=== PATIENT | male | born 1975 | race Two or more races ===

== ENCOUNTER 2021-12-29 08:52 | Inpatient (IN) | payer BC, OTHER ==
[~2021-12-29] VITALS: Ht 182.9 cm; Wt 136.0 kg
[2021-12-29 09:40] LABS: Hematocrit 36.8 % (41.0-53.0); Hemoglobin 12.9 g/dL (13.5-17.5); Mean Corpuscular Hemoglobin 31.8 pg (28.0-32.0); Mean Corpuscular Volume 90.7 fL (80.0-100.0); Red Blood Cells 4.06 10^6/uL (4.5-5.90); Red Cell Distribution Width 14.9 % (11.8-14.3); White Blood Cell 13.9 10^3/uL (4.4-10.8)
[2021-12-29 09:46] LABS: Basophils % (manual) 0 (0.0-2.0); Blast Cells 0; Myelocytes % 0; Promyelocytes % 0; Reactive Lymphocytes 0
[2021-12-29 09:56] LABS: Albumin 2.2 g/dL (3.4-5.0); Calcium 8.2 mg/dL (8.5-10.1)
[2021-12-29 10:01] LABS: BUN/Creatinine Ratio 17.5; Bilirubin, Total 1.4 mg/dL (0.2-1.0)
[2021-12-29 10:02] LABS: Potassium 2.9 mmol/L (3.5-5.1)
[2021-12-29] MEDS ORDERED: POTASSIUM EFFERVESENT TAB 25 MEQ PO ONE ×2 (11:00→12:45)
[2021-12-29] MEDS ORDERED: levoFLOXacin 500MG 100 ML IV ONE (11:45)
[2021-12-29] MEDS ORDERED: SODIUM CHLORIDE 0.9% 1,000 ML IV ONE ×4 (12:00→20:45)
[2021-12-29 12:03] LABS: Band Neutrophils % (manual) 26; Eosinophils % (manual) 1 (0-7); Lymphocytes % (manual) 9 (10.0-50.0); Metamyelocytes % 2; Monocytes % (manual) 12 (0-12)
[2021-12-29] MEDS: SODIUM CHLORIDE 0.9% 1,000 ML IV SCH ×2 (12:21→22:07)
[2021-12-29] MEDS ORDERED: KETOROLAC TROMETH 30 MG/ML 1ML VIAL IV PRN (12:45)
[2021-12-29] MEDS ORDERED: KETOROLAC TROMETH 30 MG/ML 1ML VIAL IV ONE (12:45)
[2021-12-29] MEDS ORDERED: PANTOPRAZOLE 40 MG/10 ML VIAL INJ IV ONE (12:45)
[2021-12-29 13:23] LABS: % Iron Saturation 7.7 % (20-55); Phosphorus 2.8 mg/dL (2.5-4.90)
[2021-12-29 13:27] LABS: Urine Bacteria MANY /hpf (None Seen); Urine Blood TRACE /uL (Negative); Urine Hyaline Cast FEW /lpf (0 - 2); Urine Mucus FEW (None Seen); Urine Specific Gravity 1.014 (1.001-1.035); Urine WBC 172 /hpf (0 - 3); Urine WBC Clumps PRESENT /hpf (None Seen)
[2021-12-29] MEDS ORDERED: IBUP200C3 PO (13:43)
[2021-12-29 13:56] VITALS: BP 110/63
[2021-12-29] MEDS ORDERED: MANNITOL FTV 25% 12.5 GM/50 ML 50 ML IV ONE (14:15)
[2021-12-29] MEDS ORDERED: TAMSULOSIN HYDROCHLORIDE 0.4 MG CAP PO ONE (14:15)
[2021-12-29 15:49] LABS: INR 1.16 (0.9-1.15)
[2021-12-29] MEDS: ACETAMINOPHEN 325 MG TAB PO PRN (18:44)
[2021-12-29] MEDS: MORPHINE SULFATE INJ 2 MG/ml SYRG IV PRN ×2 (18:44→20:50)
[2021-12-29] MEDS: ONDANSETRON HCL 4 MG/2 ML VIAL IV PRN (18:44)
[2021-12-29] MEDS: ALBUTEROL SULF 2.5 MG/0.5ML(0.5%) NEB SOLN NEB PRN (21:00)
[2021-12-29 22:06] LABS: Magnesium 1.8 mg/dL (1.6-2.6); Phosphorus 3.3 mg/dL (2.5-4.90); Potassium 3.1 mmol/L (3.5-5.1)
[2021-12-30 06:08] LABS: Basophils # (auto) 0 10 ^3/uL (0-0.2); Basophils % (auto) 0.2 % (0.0-2.0); Eosinophils # (auto) 0 10 ^3/uL (0-0.8); Eosinophils % (auto) 0.3 % (0.0-7.0); Hematocrit 33.2 % (41.0-53.0); Hemoglobin 11.5 g/dL (13.5-17.5); Lymphocytes # (auto) 0.4 10 ^3/uL (0.4-5.4); Lymphocytes % (auto) 4.2 % (10.0-50.0); Mean Corpuscular Hemoglobin 32.2 pg (28.0-32.0); Mean Corpuscular Hgb Conc. 34.7 g/dL (32.0-36.0); Mean Corpuscular Volume 92.9 fL (80.0-100.0); Neutrophils % (auto) 84.3 % (37.0-80.0); Red Blood Cells 3.57 10^6/uL (4.5-5.90); Red Cell Distribution Width 15.6 % (11.8-14.3); White Blood Cell 9.5 10^3/uL (4.4-10.8)
[2021-12-30 06:17] LABS: Calcium 7.6 mg/dL (8.5-10.1); Potassium 3.1 mmol/L (3.5-5.1)
[2021-12-30 06:20] LABS: Albumin 1.9 g/dL (3.4-5.0); BUN/Creatinine Ratio 20.5
[2021-12-30 06:22] LABS: Bilirubin, Total 0.9 mg/dL (0.2-1.0); Total Protein 5.6 g/dL (6.4-8.2)
[2021-12-30] MEDS ORDERED: POTASSIUM CHL 20 Meq TABLET PO ONE (06:30)
[2021-12-30 09:00] VITALS: BP 116/68
[2021-12-30] MEDS ORDERED: levoFLOXacin 500MG 100 ML IV SCH (10:00)
[2021-12-30] MEDS ORDERED: ENOXAPARIN SOD 40 MG/0.4 ML SYRINGE SC SCH (10:00)
[2021-12-30] MEDS: PANTOPRAZOLE 40 MG/10 ML VIAL INJ IV SCH (10:02)
[2021-12-30] MEDS: MORPHINE SULFATE INJ 2 MG/ml SYRG IV PRN ×2 (10:03→14:46)
[2021-12-30] MEDS: levoFLOXacin 250MG 50 ML IV SCH (10:06)
[2021-12-30] MEDS: SODIUM CHLORIDE 0.9% 1,000 ML IV SCH ×2 (10:07→18:00)
[2021-12-30 13:00] VITALS: BP 111/65
[2021-12-30] MEDS: ONDANSETRON HCL 4 MG/2 ML VIAL IV PRN (14:45)
[2021-12-30] MEDS: ALBUTEROL SULF 2.5 MG/0.5ML(0.5%) NEB SOLN NEB PRN (14:49)
[2021-12-30 16:03] LABS: Hematocrit 33.3 % (41.0-53.0); Hemoglobin 11.5 g/dL (13.5-17.5)
[2021-12-30] MEDS ORDERED: LACTULOSE 20Gm/30ML SOLN PO PRN (16:30)
[2021-12-30] MEDS ORDERED: TEMAZEPAM 15 MG CAP PO PRN (16:30)
[2021-12-30 17:00] VITALS: BP 113/78
[2021-12-30 21:33] LABS: Hematocrit 31.8 % (41.0-53.0); Hemoglobin 11.3 g/dL (13.5-17.5)
[2021-12-30 22:00] VITALS: BP 115/62
[2021-12-31] MEDS: ALBUTEROL SULF 2.5 MG/0.5ML(0.5%) NEB SOLN NEB PRN ×2 (00:12→15:18)
[2021-12-31] MEDS: SODIUM CHLORIDE 0.9% 1,000 ML IV SCH ×2 (04:00→12:29)
[2021-12-31 05:00] VITALS: BP 109/61
[2021-12-31 05:55] LABS: Basophils # (auto) 0.1 10 ^3/uL (0-0.2); Basophils % (auto) 0.6 % (0.0-2.0); Eosinophils # (auto) 0.1 10 ^3/uL (0-0.8); Eosinophils % (auto) 0.6 % (0.0-7.0); Hematocrit 32.1 % (41.0-53.0); Hemoglobin 11.6 g/dL (13.5-17.5); Lymphocytes # (auto) 0.6 10 ^3/uL (0.4-5.4); Lymphocytes % (auto) 7.2 % (10.0-50.0); Mean Corpuscular Hemoglobin 32.5 pg (28.0-32.0); Mean Corpuscular Volume 90.3 fL (80.0-100.0); Monocytes # (auto) 1.1 10 ^3/uL (0-1.3); Neutrophils # (auto) 7.1 10 ^3/uL (1.6-8.6); Neutrophils % (auto) 79.6 % (37.0-80.0); Red Blood Cells 3.56 10^6/uL (4.5-5.90); Red Cell Distribution Width 15.4 % (11.8-14.3); White Blood Cell 8.9 10^3/uL (4.4-10.8)
[2021-12-31 06:15] LABS: Albumin 1.9 g/dL (3.4-5.0); Calcium 7.6 mg/dL (8.5-10.1); Potassium 3.2 mmol/L (3.5-5.1)
[2021-12-31 06:18] LABS: Total Protein 5.6 g/dL (6.4-8.2)
[2021-12-31 09:08] VITALS: BP 128/75
[2021-12-31] MEDS: levoFLOXacin 250MG 50 ML IV SCH (09:08)
[2021-12-31] MEDS: PANTOPRAZOLE 40 MG/10 ML VIAL INJ IV SCH (09:08)
[2021-12-31] MEDS: MORPHINE SULFATE INJ 2 MG/ml SYRG IV PRN (09:17)
[2021-12-31 13:20] VITALS: BP 113/63
[2021-12-31] MEDS: ACETAMINOPHEN 325 MG TAB PO PRN (14:25)
[2021-12-31 17:00] VITALS: BP 123/77
[2021-12-31 20:00] VITALS: BP 116/51
[2021-12-31 22:00] VITALS: BP 116/51
[2022-01-01] MEDS: ALBUTEROL SULF 2.5 MG/0.5ML(0.5%) NEB SOLN NEB PRN (02:44)
[2022-01-01 05:00] VITALS: BP 119/56
[2022-01-01 08:30] VITALS: BP 120/76
[2022-01-01 09:00] VITALS: BP 120/76
[2022-01-01] MEDS ORDERED: cefTRIAXone 1GM/50ML D5W 50 ML IV ONE (09:15)
[2022-01-01] MEDS: SODIUM CHLORIDE 0.9% 1,000 ML IV SCH ×2 (10:45)
[2022-01-01] MEDS ORDERED: POTASSIUM EFFERVESENT TAB 25 MEQ PO ONE ×2 (12:45→13:15)
[2022-01-01 13:00] VITALS: BP 123/70
[2022-01-01] MEDS ORDERED: CIPR500T4 PO (13:05)
[2022-01-01] MEDS ORDERED: TAM04C PO (13:05)
[2022-01-01 14:24] VITALS: BP 123/70
[2022-01-01 15:37] VITALS: BP 123/70
[2022-01-02] MEDS ORDERED: cefTRIAXone 1GM/50ML D5W 50 ML IV SCH (09:00)
== END 2022-01-01 16:35 | disposition home or self-care (01) | DRG 871 ==
LOC: ER 08:52 → OVERFLOW 11:55 → WEST WING 22:45
PROVIDERS: ADMIT Nurse Practitioner Family; ATTEND Nurse Practitioner Acute Care
DX: A41.9 Sepsis, unspecified organism (principal); E43 Unspecified severe protein-calorie malnutrition; N13.6 Pyonephrosis; N17.9 Acute kidney failure, unspecified; E87.1 Hypo-osmolality and hyponatremia; Z68.41 Body mass index [BMI] 40.0-44.9, adult; D69.6 Thrombocytopenia, unspecified; D64.9 Anemia, unspecified; E66.01 Morbid (severe) obesity due to excess calories; E87.6 Hypokalemia; Z20.822 Contact with and (suspected) exposure to COVID-19; I12.9 Hypertensive chronic kidney disease with stage 1 through stage 4 chronic kidney disease, or unspecified chronic kidney disease; K52.9 Noninfective gastroenteritis and colitis, unspecified; N18.9 Chronic kidney disease, unspecified; K76.0 Fatty (change of) liver, not elsewhere classified; E88.09 Other disorders of plasma-protein metabolism, not elsewhere classified; Z80.43 Family history of malignant neoplasm of testis; Z88.0 Allergy status to penicillin
CPT/HCPCS: 36415; 71045; 74176; 76775; 80053; 80061; 81001; 83036; 83540; 83550; 83605; 83735; 84100; 84132; 84443; 85007; 85014; 85018; 85025; 85027; 85610; 87040; 87077; 87186; 87426; 93005; 94640; 96365; 96375; C9113; G0378; J0696; J1885; J1956; J2405